=== PATIENT | male | born 1970 | race Caucasian/White ===

== ENCOUNTER → 2016-08-12 | Outpatient (CLI) | payer BC ==
[~2016-08-12] MED LIST: ATOR10TA82 PO; CETI10TA10 PO; CLR10 PO; DXY100 PO
[2016-08-12 11:38] LABS: CHOLESTEROL/HDL RATIO 3.4
== END | disposition home or self-care (01) ==
LOC: C.LABBC 07:34
PROVIDERS: ATTEND Family Medicine
DX: E78.00 Pure hypercholesterolemia, unspecified (principal)

== ENCOUNTER 2017-01-13 07:23 | Emergency (ER) | payer BC, OTHER ==
[~2017-01-13] VITALS: Ht 172.7 cm; Wt 66.4 kg
[~2017-01-13 07:23] MED LIST changes: -ATOR10TA82 PO; -CETI10TA10 PO
[2017-01-13 07:27] VITALS: TEMP 36.6; Ht 172.7 cm; Wt 66.4 kg
--- NOTE | 2017-01-13 07:37 | EMERGENCY ROOM VISIT NOTE ---
History Report prepared by [facility]: Lisa Novak Under the Supervision of: Dr. Sanket Munoz M.D. First contact with patient: 07:27 Chief Complaint: HEADACHE Stated Complaint: HEADACHE History of Present Illness The patient is a 46 year old male who presents to the Emergency Room with complaints of sudden right sided weakness that began around 0650 this morning. The patient reports that this morning he was putting on his boots for work when he developed right sided weakness. He states that he could not stand up on his right leg due to the weakness. The patient states that he has had migraines in the past with weakness, but states that today was much worse. The patient states that he called 911 because he could not stand and states that he then developed a migraine with an aura. He describes the aura as a tear through his right eye vision. The patient additionally associates difficultly breathing and tightness across his right chest. The patient denies any fever, chills, or abdominal pain. He notes a history of high cholesterol, stating that he is on Lipitor. Source of History: patient Onset: 0650 this morning Position: other (right sided) Quality: other (weakness) Timing: other (sudden) Associated Symptoms: No fevers, No chills, No abdominal pain Note: Associated Symptoms: migraine with aura, difficulty breathing, tightness across right chest Review of Systems All systems have been listed, reviewed, and are negative other than those previously mentioned. Please see Additional Medical History Sheet. Past Medical & Surgical Surgical Problems: (1) H/O hand surgery Family History Heart disease Hypertension Social History Smoking Status: Never Smoker Smokeless Tobacco Use: No Alcohol Use: occasionally Marital Status: single Housing Status: lives alone Occupation Status: employed Current/Historical Medications Scheduled Atorvastatin (Lipitor), 10 MG PO DAILY Cetirizine Hcl (Zyrtec), 10 MG PO DAILY Allergies Coded Allergies: POLLEN (Verified Allergy, Unknown, HAYFEVER, 01/13/17) Physical Exam Vital Signs Date Time Temp Pulse Resp B/P (MAP) Pulse Ox O2 Delivery O2 Flow Rate FiO2 01/13/17 10:48 82 16 131/85 99 01/13/17 10:29 82 16 131/85 99 Room Air 01/13/17 08:41 81 15 124/83 98 Room Air 01/13/17 07:38 100 Room Air 01/13/17 07:27 36.6 75 18 150/85 100 Room Air 01/13/17 07:27 90 Physical Exam GENERAL: Patient awake, alert, oriented x 3. Patient follows commands. Patient does not appear toxic. Patient is adequately hydrated and well- nourished. SKIN: No erythema, pallor, cyanosis or rash HEENT: Normal head, no facial asymmetry, pupils equal, reactive to light and accommodation. Ears normal. Oral cavity and posterior pharynx appear normal. Neck: Without adenopathy, no neck vein distention. LUNGS: Clear to auscultation. No wheezes, no rales, no rhonchi. HEART: No murmurs. No gallops. No rubs ABDOMEN: Soft nontender. EXTREMITIES: No signs of trauma. No pedal or pretibial edema. No calf or thigh tenderness. NEUROLOGIC: Slight weakness right arm right leg slight decrease sensation right arm right leg and right face, no facial asymmetry. Medical Decision & Procedures ER Provider Diagnostic Interpretation: CT results are interpretations by the radiologist and per my review. CT SCAN OF THE BRAIN WITHOUT IV CONTRAST CLINICAL HISTORY: Headache. Right-sided weakness. COMPARISON STUDY: MRI of the brain dated 05/13/2015. TECHNIQUE: Unenhanced axial CT scan of the brain is performed from the vertex to the skull base. Automated dose control exposure was utilized. CT DOSE: 537.48 mGy.cm FINDINGS: Brain parenchyma: The brain parenchyma is normal in appearance. There is no hemorrhage, mass effect, or evidence of acute territorial ischemia by CT criteria. Cage-white matter is preserved. No extra-axial fluid collection is seen. Ventricles, sulci, cisterns: Normal in configuration. Intracranial vasculature: The visualized intracranial vasculature at the skull base is normal in appearance. Calvarium: Unremarkable. Sinuses and mastoids: The visualized paranasal sinuses are clear. The mastoid air cells are well pneumatized. Orbits: The bony orbits are grossly intact. IMPRESSION: There is no hemorrhage, mass effect, or evidence of acute territorial ischemia by CT criteria. Electronically signed by: Luke Maynard M.D. 01/13/2017 7:55 AM Dictated Date/Time: 01/13/2017 7:50 AM Laboratory Results 01/13/17 07:40 01/13/17 07:40 Test 6/8/17 07:40 Red Blood Count 5.20 M/uL (4.7-6.1) Mean Corpuscular Volume 85.8 fL (80-100) Mean Corpuscular Hemoglobin 29.8 pg (25-34) Mean Corpuscular Hemoglobin Concent 34.8 g/dl (32-36) RDW Standard Deviation 40.4 fL (36.4-46.3) RDW Coefficient of Variation 12.8 % (11.5-14.5) Mean Platelet Volume 8.5 fL (7.4-10.4) Anion Gap 5.0 mmol/L (3-11) Est Creatinine Clear Calc Drug Dose 88.5 ml/min Estimated GFR () 105.6 Estimated GFR (Non- 91.1 BUN/Creatinine Ratio 14.7 (10-20) Calcium Level 9.0 mg/dl (8.5-10.1) Laboratory results as stated above per my review. ECG Indication: weakness (right sided) Rate (beats per minute): 70 Rhythm: normal sinus (sinus arrhythmia) Findings: no acute ischemic change, no ectopy ED Course 0727: Past medical records reviewed. The patient was evaluated in room A3. A complete history and physical examination was performed. 0920: I reevaluated the patient and he is feeling much better. His strength is back to normal, but he still has some tingling in his right arm. I discussed all the exam findings with him and I discussed the treatment plan. He will be observed for an additional hour. 1012: I reevaluated the patient and he is doing well. I discussed the treatment plan with him and he verbalized complete understanding and agreement. He is ready to go home. Medical Decision Nurses notes reviewed. Medical history sheet reviewed. Differential diagnosis includes but is not limited to: complex migraine with aura, TIA, CVA, neoplastic disease. The patient is a prior history of migraines with aura. Today he had no headache. He did have aura preceding the numbness to the right side of his body. CT was obtained. No signs of bleed or mass were noted. Patient's symptoms slowly subsided over time. Other labs were obtained. Please see above. I do not believe the patient is experiencing a TIA or CVA. I do believe he is having a migraine variant without pain. The patient has seen Dr. Cole in the past and will follow-up with her again. I have not placed the patient on any new medications at this time. Medication Reconciliation: I attest that I have personally reviewed the patient' s current medication list. Blood Pressure Screening: Patient was found to have a slightly elevated blood pressure due to circumstances. I do not believe that the patient requires hypertension monitoring. Impression Primary Impression: Migraine variant Scribe Attestation The scribe's documentation has been prepared under my direction and personally reviewed by me in its entirety. I confirm that the note above accurately reflects all work, treatment, procedures, and medical decision making performed by me. Departure Information Dispostion Home / Self-Care Referrals No Doctor, Assigned (PCP) Soniya Norwood D.O., Tania S., MD Forms HOME CARE DOCUMENTATION FORM, IMPORTANT VISIT INFORMATION Patient Instructions My [facility] Additional Instructions Continue your current medications as prescribed. Follow-up with Dr. Cole. Return here sooner if you have more episodes.
[2017-01-13 07:38] VITALS: O2SAT 100
[2017-01-13 07:55] LABS: HEMATOCRIT 44.6 % (42-52); MEAN CELL VOLUME 85.8 fL (80-100); MEAN CORPUSCULAR HEMOGLOBIN 29.8 pg (25-34); MEAN CORPUSCULAR HGB CONC 34.8 g/dl (32-36); MEAN PLATELET VOLUME 8.5 fL (7.4-10.4); PLATELET COUNT 284 K/uL (130-400); WHITE BLOOD COUNT 5.95 K/uL (4.8-10.8)
--- NOTE | 2017-01-13 07:56 | DIAGNOSTIC IMAGING REPORT ---
CT SCAN OF THE BRAIN WITHOUT IV CONTRAST CLINICAL HISTORY: Headache. Right-sided weakness. COMPARISON STUDY: MRI of the brain dated 05/13/2015. TECHNIQUE: Unenhanced axial CT scan of the brain is performed from the vertex to the skull base. Automated dose control exposure was utilized. CT DOSE: 537.48 mGy.cm FINDINGS: Brain parenchyma: The brain parenchyma is normal in appearance. There is no hemorrhage, mass effect, or evidence of acute territorial ischemia by CT criteria. Cage-white matter is preserved. No extra-axial fluid collection is seen. Ventricles, sulci, cisterns: Normal in configuration. Intracranial vasculature: The visualized intracranial vasculature at the skull base is normal in appearance. Calvarium: Unremarkable. Sinuses and mastoids: The visualized paranasal sinuses are clear. The mastoid air cells are well pneumatized. Orbits: The bony orbits are grossly intact. IMPRESSION: There is no hemorrhage, mass effect, or evidence of acute territorial ischemia by CT criteria. Electronically signed by: Luke Maynard M.D. 01/13/2017 7:55 AM Dictated Date/Time: 01/13/2017 7:50 AM
[2017-01-13] MEDS ORDERED: CETI10TA10 PO (08:26)
[2017-01-13] MEDS ORDERED: ATOR10TA82 PO (08:26)
[2017-01-13 08:37] LABS: BUN/CREATININE RATIO 14.7 (10-20); POTASSIUM 4.1 mmol/L (3.5-5.1)
[2017-01-13 10:48] VITALS: BP 131/85; PULSE 82; O2SAT 99
== END 2017-01-13 10:49 | disposition home or self-care (01) ==
LOC: EDBD 07:23 → C.EDA 07:24
DX: G43.909 Migraine, unspecified, not intractable, without status migrainosus (principal); E78.00 Pure hypercholesterolemia, unspecified; Z79.899 Other long term (current) drug therapy; Z82.49 Family history of ischemic heart disease and other diseases of the circulatory system

== ENCOUNTER → 2017-03-30 | Outpatient (CLI) | payer BC ==
[~2017-03-30] MED LIST changes: +ATOR10TA88 PO; +CETI10TA10 PO; -CLR10 PO; -DXY100 PO
[2017-03-30 11:14] LABS: BASO % 0.3 %; BASO ABS # 0.02 K/uL (0-0.2); COMPLETE YES; EOS % 2.2 %; HEMATOCRIT 43.2 % (42-52); IG% 0.2 %; LYMPH % 32.3 %; LYMPH ABS # 1.94 K/uL (1.2-3.4); MEAN CELL VOLUME 88.5 fL (80-100); MEAN CORPUSCULAR HEMOGLOBIN 29.7 pg (25-34); MEAN CORPUSCULAR HGB CONC 33.6 g/dl (32-36); MEAN PLATELET VOLUME 9.3 fL (7.4-10.4); PLATELET COUNT 281 K/uL (130-400); RED BLOOD COUNT 4.88 M/uL (4.7-6.1); WHITE BLOOD COUNT 6.01 K/uL (4.8-10.8)
[2017-03-30 11:40] LABS: ALT/SGPT 32 U/L (12-78); AMYLASE 31 U/L (25-115); AST/SGOT 12 U/L (15-37); BLOOD UREA NITROGEN 11 mg/dl (7-18); BUN/CREATININE RATIO 11.3 (10-20); CARBON DIOXIDE 28 mmol/L (21-32); CHLORIDE 107 mmol/L (98-107); GLUCOSE 96 mg/dl (70-99); POTASSIUM 4.2 mmol/L (3.5-5.1); SODIUM 141 mmol/L (136-145)
[2017-03-30 11:43] LABS: ALB/GLOB RATIO 1.4 (0.9-2); ALKALINE PHOSPHATASE 81 U/L (45-117)
[2017-03-30 12:45] LABS: LYME DISEASE AB IGG NEG (NEG); LYME DISEASE AB IGM NEG (NEG)
== END | disposition home or self-care (01) ==
LOC: C.LABBC 07:55
PROVIDERS: ATTEND Family Medicine
DX: R11.0 Nausea (principal)

== ENCOUNTER → 2017-09-05 | Outpatient (CLI) | payer OTHER ==
[~2017-09-05] MED LIST changes: +ATOR10TA82 PO; -ATOR10TA88 PO
== END | disposition home or self-care (01) ==
LOC: C.LABBC 08:19
PROVIDERS: ATTEND Family Medicine
DX: E78.00 Pure hypercholesterolemia, unspecified (principal)